=== PATIENT | male | born 1985 | race Caucasian/White ===

== ENCOUNTER 2019-05-09 15:35 | Emergency (ER) | payer OTHER, SELFPAY ==
[2019-05-09 16:06] VITALS: BP 135/79; PULSE 87; RESP 20; TEMP 36.8; O2SAT 97
--- NOTE | 2019-05-09 16:22 | ED.URI ---
HPI - URI/Sore Throat General Chief Complaint: Upper Respiratory Infection Stated Complaint: aches, coughs congest Time Seen by Provider: 05/09/19 16:22 Source: patient and RN notes reviewed History of Present Illness HPI Narrative: Patient is a 33-year-old male that presents the urgent care with complaints of chills, sweats, body aches, congestion, nonproductive cough. Patient states his symptoms have been ongoing for approximately 4 to 5 days. Has been using Mucinex, cough drops, Tylenol, ibuprofen. No other acute complaints. No acute distress noted. Patient had a plan of care. Related Data Allergies Allergy/AdvReac Type Severity Reaction Status Date / Time No Known Allergies Allergy Verified 05/09/19 16:58 Review of Systems Review of Systems: Narrative: CONSTITUTIONAL: Reports of chills and sweats EYES: Denies visual changes, redness, or discharge. ENT: Reports of sinus congestion CARDIOVASCULAR: Denies chest pain, palpitations, or edema. RESPIRATORY: Reports of nonproductive cough without dyspnea or wheezing GASTROINTESTINAL: Denies abdominal pain, nausea, vomiting, or diarrhea. GENITOURINARY: Denies dysuria or hematuria. SKIN: Denies rash or itching. MUSCULOSKELETAL: Denies back pain, joint pain; reports of body aches NEUROLOGIC: Denies headache, numbness, or weakness. All other systems reviewed are negative, except as documented in HPI. PMFSH Social History Social History Smoking status: Current every day smoker Alcohol intake: current Comments At the time of my signature, I reviewed and agree with the nursing past medical, surgical, social, and family history. There is no relevant family history pertinent to the patient complaint. Exam Narrative: Exam Narrative: GENERAL: This is a well-nourished, well-developed patient, in no apparent distress. HEAD: normocephalic, atraumatic. EYES: PERRL. Sclera clear/white. Vision is grossly intact. EARS: External ears normal, auditory canals clear and without drainage, TMs normal without perforation. Hearing grossly intact. NOSE: External nose normal with no obvious nasal discharge, nares without redness, clear rhinorrhea. THROAT: Mucous membranes moist, posterior pharynx clear. Moderate postnasal drainage NECK: Neck supple CARDIOVASCULAR: Regular rate and rhythm without murmurs, gallops, or rubs. RESPIRATORY: Slight crackles throughout without wheezing SKIN: warm, intact with no suspicious lesions or rash, good texture and turgor. NEURO: awake, alert, and oriented to person, place and time. There were no obvious focal neurologic abnormalities. EXTREMITIES: No clubbing, cyanosis, or edema. Course Vital Signs Vital signs: Vital Signs Temperature 98.3 F 05/09/19 16:06 Pulse Rate 87 05/09/19 16:06 Respiratory Rate 20 05/09/19 16:06 Blood Pressure 135/79 05/09/19 16:06 Pulse Oximetry 97 05/09/19 16:06 Temperature 98.3 F 05/09/19 16:06 Pulse Rate 87 05/09/19 16:06 Respiratory Rate 20 05/09/19 16:06 Blood Pressure 135/79 05/09/19 16:06 Pulse Oximetry 97 05/09/19 16:06 Reviewed MDM - URI/Sore Throat MDM Narrative Medical decision making narrative: Patient likely has influenza but we did not swab due to the length of symptoms. Advised the patient to treat symptoms with oril-mji-nhwwrxj medication such as Robitussin/Delsym for cough, Claritin for allergy-like symptoms, Flonase for nasal congestion, Tylenol/Motrin for fever/body aches. Increase fluids, especially water and rest. Use a humidifier. Be aware of symptoms of dehydration such as lethargy, confusion, increased weakness, dry lips, dry eyes. Follow-up with PCP within 2-5 days or for worsening symptoms or failure to improve. Differential Diagnosis Differential diagnosis: Likely upper respiratory infection, otitis media, sinusitis, viral infection, bronchitis, influenza and pharyngitis Critical Care Time Critical Care Time Cr
== END 2019-05-09 17:20 | disposition home or self-care (01) ==
PROVIDERS: Emergency Provider Nurse Practitioner Family
DX: B34.9 Viral infection, unspecified (principal); F17.200 Nicotine dependence, unspecified, uncomplicated
CPT/HCPCS: 99211; G0463

== ENCOUNTER 2019-05-17 21:15 | Emergency (ER) | payer OTHER, SELFPAY ==
--- NOTE | ~2019-05-17 | XR_ITS ---
EXAMINATION: XR chest 2V DATE: 05/17/2019 23:06 INDICATION: Wheezing, cough, intermittent fever. TECHNIQUE: PA and lateral views of the chest were obtained. COMPARISON: None FINDINGS: The lungs are clear with no focal airspace opacities, pulmonary edema, pleural effusion or pneumothor ax. The cardiomediastinal silhouette is normal. Mild upper thoracic levocurvature with minimal spondy losis. IMPRESSION: 1. No acute cardiopulmonary disease. Reviewed, dictated and finalized at location A. PREVENTION CHIEF
[2019-05-17 21:21] VITALS: BP 133/100; PULSE 116; RESP 20; TEMP 37.4; O2SAT 100
--- NOTE | 2019-05-17 21:36 | ED_ITS ---
I attest that this documentation has been prepared under the direction and in the presence of Sebastián Cline MD. Hallie Donis Scribe 05/17/19;21:36 HPI - Fever General Chief Complaint: Fever Stated Complaint: fever/cough Time Seen by Provider: 05/17/19 21:29 Related Data Home Medications Medication Instructions Recorded Confirmed No Home Medications 05/17/19 05/17/19 Allergies Allergy/AdvReac Type Severity Reaction Status Date / Time No Known Allergies Allergy Verified 05/17/19 21:23 [facility] Past Medical History Medical History (Updated 05/17/19 @ 21:44 by Hallie Donis) GERD (gastroesophageal reflux disease) Inguinal hernia right, x3 Pleurisy Pneumonia Surgical History Surgical History (Updated 05/17/19 @ 21:44 by Hallie Donis) H/O inguinal hernia repair right, x3 Social History Social History (Updated 05/17/19 @ 21:44 by Hallie Donis) Smoking packs per day: 1 Smoking cigarettes per day: 20.0 Years smoked: 24 Smoking pack-years: 24.00 Smoking status: Current every day smoker Tobacco type: cigarettes Alcohol intake: current Gender identity (if verbalized by the patient): Male Course Vital Signs Vital signs: Vital Signs Temperature 37.4 C 05/17/19 21:21 Pulse Rate 116 H 05/17/19 21:21 Respiratory Rate 20 05/17/19 21:21 Blood Pressure 133/100 H 05/17/19 21:21 Pulse Oximetry 100 05/17/19 21:21 Temperature 37.4 C 05/17/19 21:21 Pulse Rate 116 H 05/17/19 21:21 Respiratory Rate 05/17/19 21:21 Blood Pressure 133/100 H 05/17/19 21:21 Pulse Oximetry 100 05/17/19 21:21 MDM - Fever Lab Data Labs: Influenza A Screen Negative Reference Range: Negative Influenza B Screen Negative Reference Range: Negative Discharge Plan Discharge Prescriptions: No Action No Home Medications RF: 0
--- NOTE | 2019-05-17 21:46 | ED.FEVER ---
HPI - Fever General Chief Complaint: Fever Stated Complaint: fever/cough Time Seen by Provider: 05/17/19 21:29 Source: patient Mode of arrival: ambulatory Limitations: no limitations History of Present Illness HPI Narrative: The pt is a 33 y/o male who presents to the ED with cold sx that began 2 weeks ago. The pt reports dizziness, drowsiness, chest congestion, cough, lt arm tingling and SCHMITT, but denies nausea or vomiting. He has been taking Mucinex, Tylenol, and cough drops with no relief of sx. He was seen at an [facility] for the same sx, where his flu test came back negative. MD elicited complaint: other (cold sx) Onset (ago): week(s) (2) Associated symptoms: headache, cough and other (dizziness, drowsiness, chest congestion, lt arm tingling) Treatments prior to arrival fever: other (Mucinex, cough drops, Tylenol) Related Data Allergies Allergy/AdvReac Type Severity Reaction Status Date / Time No Known Allergies Allergy Verified 05/17/19 21:23 Review of Systems Review of Systems: All systems reviewed & are unremarkable except as noted in HPI and below Constitutional: Constitutional: Reports other (dizziness, drowsiness) ENT: Reports other (chest congestion) Respiratory: Respiratory: Reports cough Gastrointestinal: Gastrointestinal: Denies nausea and Denies vomiting Neurologic: Reports headache(s) and Reports tingling (lt) PMFSH Past Medical History Medical History GERD (gastroesophageal reflux disease) Inguinal hernia right, x3 Pleurisy Pneumonia Surgical History Surgical History H/O inguinal hernia repair right, x3 Family History Family History Father Family history of chronic obstructive pulmonary disease Social History Social History Smoking packs per day: 1 Smoking cigarettes per day: 20.0 Years smoked: 24 Smoking pack-years: 24.00 Smoking status: Current every day smoker Tobacco type: cigarettes Alcohol intake: current Gender identity (if verbalized by the patient): Male Exam Const: General: no acute distress and ill appearing Nutritional Appearance: well nourished HENMT: Mouth: Yes lip normal and Yes moist mucous membranes Eyes: Conjunctivae: conjunctivae normal Pupils: Equal, round and reactive pupils present Resp: Effort & Inspection: normal respiratory effort Auscultation: wheezes expiratory wheezes Cardio: Rate: regular rate Rhythm: regular rhythm GI: GI Palp: Yes Soft to palpation and No Tenderness to palpation present (GI) Auscultation: normal bowel sounds Back/Spine/Pelvis: Back: other (full ROM) Skin: General skin exam: normal color, dry skin and other (warm) Neuro: General: patient oriented x3 Speech: normal speech Extrem: General: full ROM Psych: Mental Status: mental status grossly normal Affect: normal affect Course Vital Signs Vital signs: Vital Signs Temperature 37.4 C 05/17/19 21:21 Pulse Rate 116 H 05/17/19 21:21 Respiratory Rate 20 05/17/19 21:21 Blood Pressure 133/100 H 05/17/19 21:21 Pulse Oximetry 100 05/17/19 21:21 Temperature 37.4 C 05/17/19 21:21 Pulse Rate 82 05/17/19 22:11 Respiratory Rate 23 H 05/17/19 22:11 Blood Pressure 133/100 H 05/17/19 21:21 Pulse Oximetry 100 05/17/19 21:21 MDM - Fever Differential Diagnosis Differential diagnosis: Likely community acquired pneumonia, influenza and other (bronchitis) Medical Records Attestation: I reviewed the patient's medical records. Lab Data Attestation: I reviewed the patient's lab results. Labs: Influenza A Screen Negative Reference Range: Negative Influenza B Screen Negative Reference Range: Negative Imaging Data Attestation: I personally reviewed and interpreted this
[2019-05-17 22:04] VITALS: PULSE 88; RESP 18
[2019-05-17] MEDS: ALBUTEROL SULFATE NEB 2.5 MG/0.5 ML INH 5 MG INHALATION (22:06)
[2019-05-17 22:11] VITALS: PULSE 82; RESP 23
[2019-05-17 23:35] VITALS: BP 122/85; PULSE 88; RESP 18; O2SAT 98
== END 2019-05-17 23:36 | disposition home or self-care (01) ==
PROVIDERS: Emergency Provider Emergency Medicine
DX: K21.9 Gastro-esophageal reflux disease without esophagitis (principal); J20.9 Acute bronchitis, unspecified
CPT/HCPCS: 71046; 87804; 94640; 96372; 99283; J1100

== ENCOUNTER 2019-08-25 09:43 | Emergency (ER) | payer OTHER, SELFPAY ==
--- NOTE | ~2019-08-25 | XR_ITS ---
EXAMINATION: XR shoulder RT min 2V DATE: 08/25/2019 10:12 INDICATION: Right shoulder pain. Fall. TECHNIQUE: 4 views of right shoulder were obtained. COMPARISON: None. FINDINGS: Bone alignment is normal. No acute fracture. There is an old healed fracture of the right s eventh rib. Joint spaces are normal. IMPRESSION: 1. No acute fracture. Reviewed, dictated and finalized at location A. IMPRESSION: 1. No acute fracture.
[2019-08-25 09:54] VITALS: BP 147/88; PULSE 94; RESP 20; TEMP 36.4; O2SAT 98
--- NOTE | 2019-08-25 10:04 | ED.UPPEXIN ---
HPI - Extremity Injury (Upper) General Chief Complaint: Extremity Injury, Upper Stated Complaint: SHOULDER PAIN Time Seen by Provider: 08/25/19 09:48 Source: RN notes reviewed History of Present Illness HPI narrative: Patient presents emergency department from home for right shoulder pain. Patient states symptoms began 4 days ago. Pain is located in the superior and posterior shoulder radiating to the right lower neck. Patient states symptoms began upon awakening 4 days ago. States pain is worse with movement of the shoulder. He denies any known trauma or injury denies any chest pain shortness of breath numbness or tingling in the extremities or any other symptoms of concern. States pain does radiate down his right arm. Patient has been using a TENS unit as well as ibuprofen at home with normal relief Related Data Allergies Allergy/AdvReac Type Severity Reaction Status Date / Time Bleach (Sodium Hypochlorite) Allergy Difficulty Verified 08/25/19 09:58 Breathing Review of Systems Review of Systems: Narrative: Gen.: Denies fevers or chills ENT: Denies congestion Respiratory: Denies shortness of breath or cough CV: Denies chest pain or palpitations GI: Denies abdominal pain nausea, emesis or diarrhea Musculoskeletal: See HPI Neuro: Denies numbness, tingling, weakness or focal weakness Skin: Denies rash Except as documented, all other systems reviewed and negative PMFSH Past Medical History Medical History GERD (gastroesophageal reflux disease) Inguinal hernia right, x3 Pleurisy Pneumonia Social History Social History Smoking packs per day: 1 Smoking cigarettes per day: 20.0 Years smoked: 24 Smoking pack-years: 24.00 Smoking status: Current every day smoker Tobacco type: cigarettes Alcohol intake: current Gender identity (if verbalized by the patient): Male Exam Narrative: Exam Narrative: APPEARANCE: No acute distress, nontoxic, resting in bed EYES: EOMI HEENT: Normocephalic, atraumatic, OMM Neck: Supple, no midline tenderness palpation tender palpation right paravertebral muscle C5-7 RESPIRATORY: No respiratory distress Clear to auscultation bilaterally with no rhonchi wheezing or rales. CARDIOVASCULAR: Regular rate and rhythm without murmurs rubs or gallops. ABDOMINAL: Soft, nontender, MUSCULOSKELETAl: Moves all extremities. No clubbing, cyanosis or edema. Tender palpation of the right superior posterior shoulder with tenderness throughout the region of the trapezius muscle pain with flexion abduction of the right shoulder greater than 45 degrees no tenderness of the right elbow or wrist radial pulse 2+, neurovascular intact NEURO: Awake and alert. Following commands, speech normal, no focal deficits SKIN:: Warm, dry. No rashes lesions or abrasions PSYCHIATRIC: Normal affect/mood, Course Course Emergency Course: Discussed with patient results of workup and diagnosis. Discussed need for follow-up with primary care, proper use of medication, and reasons to return to the emergency department. Patient understands and agrees to current treatment plan Vital Signs Vital signs: Vital Signs Temperature 97.5 F L 08/25/19 09:54 Pulse Rate 94 08/25/19 09:54 Respiratory Rate 08/25/19 09:54 Blood Pressure 147/88 H 08/25/19 09:54 Pulse Oximetry 98 08/25/19 09:54 Temperature 97.5 F L 08/25/19 09:54 Pulse Rate 94 08/25/19 09:54 Respiratory Rate 08/25/19 09:54 Blood Pressure 147/88 H 08/25/19 09:54 Pulse Oximetry 98 08/25/19 09:54 Discharge Plan Discharge Clinical Impression: Trapezius muscle spasm Patient Disposition: Home, Self-Care Condition: Stable Instructions: Antibiotic Form, Muscle Spasm (ED) Additional Instructions: Return for increasing pain numbness or tingling in extremities or any other symptoms of concern. Use a warm sonia
== END 2019-08-25 10:50 | disposition home or self-care (01) ==
PROVIDERS: Emergency Provider Emergency Medicine
DX: M62.830 Muscle spasm of back (principal); F17.210 Nicotine dependence, cigarettes, uncomplicated; K21.9 Gastro-esophageal reflux disease without esophagitis
CPT/HCPCS: 73030; 99283; A9270

== ENCOUNTER 2019-10-30 15:30 | Outpatient (RCR) | payer OTHER, SELFPAY ==
[2019-09-25 13:19] VITALS: BP_SYST 140
--- NOTE | 2019-09-25 14:56 | PTOPEVAL ---
Thank you for referring Albaro Adams to [facility]. Please review, sign, date and return this plan of care FABI. Pt referred to therapy due to right shoulder pain. He demonstrates shoulder weakness, restriction motion, radiating neural symptoms and poor scapular movement pattern. He requires additional skilled therapy 2x/wk x 5 wk to address UE symptoms and improve UE function. I agree with and certify that the following plan of care is medically necessary. Referring Physician Date Attending Provider: Sadia Ramos, MD *PT Outpatient Evaluation Start: 09/25/19 13:16 Freq: Status: Active Protocol: Document 09/25/19 13:19 CAP (Rec: 09/25/19 14:17 CAP [id number]) Therapy Assessment Status Assessment Status Assessment Status Evaluation Outpatient Past Medical History Past Medical History Source of Past Medical History Patient,Recalled from Previous Visit, Confirmed with Patient /Family Cardiovascular History Hx Hypertension Yes Gastrointestinal History Hx Hernia Yes: 3 repaired Musculoskeletal History Hx Fractures Yes: both legs 8 fx Psychosocial History Hx Anxiety Yes Hx Depression Yes Evaluation Information Problem Diagnosis right shoulder pain Onset 5-6 wks Cause unknown Subjective Information He woke up with neck and Query Text:As Reported By Patient/ shoulder pain. Reports Family radiating pain into right arm and chest region. Reports pin/ needles of right UE at all times. He is limited with use due to pain and symptoms. He has trouble sleeping due to pain. Prefers to sleep on right side. He using a pool to move the arm in circles, with improve motion, but cont pain when out of the pool. Using a TENS for pain with relief. He has some relief, but reports burning after a few hours. He using the unit constantly without off period during the day. Diagnostic Tests X-Rays For This Problem Yes: no fracture Prior Level of Function Activity Level (Last 3 Months) Occupation construction Hand Dominance Right Pain Assessment Timing of Pain Assessment Timing of Pain Assessment Assessment Pain Scale
--- NOTE | 2019-10-30 16:28 | PTOPEVAL ---
Thank you for referring Albaro Adams to [facility]. Please review, sign, date and return this plan of care FABI. Pt has received 10 therapy visits to address his right shoulder impairment. He demonstrates normal UE range and strength. He is able to perform normal daily activities without increased symptoms. DC skilled therapy at this time with goals achieved. I agree with and certify that the following plan of care is medically necessary. Referring Physician Date Attending Provider: Sadia Ramos, PT update/DC note *PT Outpatient Evaluation Start: 09/25/19 13:16 Freq: Status: Active Protocol: Document 10/30/19 15:32 ALISIA (Rec: 10/30/19 15:58 ALISIA [id number]) Therapy Assessment Status Assessment Status Assessment Status Re-evaluation Problem Diagnosis right shoulder pain Onset 5-6 wks Cause unknown Subjective Information He was performing he heavy Query Text:As Reported By Patient/ lifting today for 5-6 hours to Family help someone move an office. Denies any radiating UE symptoms with the lifting activities. Denies pin/needles sensation of right UE. He continues to have problems with sleeping due to UE discomfort, as well as the stess of life. He has not required use of the TENS unit this week for pain relief. Pain Assessment Timing of Pain Assessment Timing of Pain Assessment Re-assessment Pain Scale Pain Scale Used Numeric (1 - 10) Self Report Pain Assessment Right Arm(s) Reported Pain Level 0 Lowest Pain Intensity 0 Other Pain Aggravating Factors when trying to perform heavy lifting Pain Behaviors None Pain Score Pain Score 0: Self Report Upper Extremity Range of Motion Scapular/ Shoulder Range of Motion Right Scapular: Retraction Normal Scapular: Protraction Normal Scapular Downward Rotation Normal Scapular Upward Rotation Normal Shoulder Flexion - Active 175 Shoulder Extension - Active 65 Shoulder Abduction - Active 158 Shoulder Medial Rotation - Active 72 Shoulder Medial Rotation - Active T7 Query Text:Reach Behind the Back Shoulder Lateral Rotation - Active 90 Shoulder Lateral Rotation - Active C7 Query Text:Reach Behind the Head Scapular/Shoulder Range of Motion no radiating symptoms Comments Upper Extremity Muscle Strength Testing
== END 2019-11-02 10:33 | disposition home or self-care (01) ==
LOC: ANHPT 15:30
PROVIDERS: PCP Internal Medicine; Visit Provider Internal Medicine
DX: M25.511 Pain in right shoulder (principal)
CPT/HCPCS: 97014; 97110; 97140; 97162; G0283

== ENCOUNTER 2019-11-18 14:10 | Emergency (ER) | payer OTHER, SELFPAY ==
--- NOTE | ~2019-11-18 | XR_ITS ---
EXAMINATION: XR ankle LT min 3V DATE: 11/18/2019 14:47 INDICATION: Left ankle injury and pain. TECHNIQUE: 4 views of left ankle were obtained. COMPARISON: Left ankle radiographs 04/07/2008 FINDINGS: Bone alignment is normal. No acute fracture. There is a small fragment of well corticated h eterotopic ossification distal to medial malleolus, likely from old injury. There is a 2 mm fragment of ossification anterior to the ankle joint on the lateral view, likely a loose body. There is mild a nkle joint osteoarthritis. There is mild midfoot osteoarthritis. Ankle soft tissue swelling is noted. IMPRESSION: 1. 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 Reviewed, dictated and finalized at location A.
--- NOTE | ~2019-11-18 | XR_ITS ---
EXAMINATION: XR knee LT min 4V DATE: 11/18/2019 14:47 INDICATION: Left knee pain. Injury. TECHNIQUE: 4 views of left knee were obtained. COMPARISON: None. FINDINGS: Bone alignment is normal. No fracture. Joint spaces are well maintained. There is no knee j oint effusion. IMPRESSION: 1. Normal left knee. Reviewed, dictated and finalized at location A. IMPRESSION: 1. Normal left knee.
[2019-11-18 14:17] VITALS: BP 133/95; PULSE 90; RESP 28; TEMP 36.3; O2SAT 98
--- NOTE | 2019-11-18 14:30 | ED.LOWEXIN ---
HPI - Extremity Injury (Lower) General Chief Complaint: Extremity Injury, Lower <Ariela Lindsay PA-C - Last Filed: 11/18/19 15:13> Stated Complaint: Left Ankle pain <JANET Bonilla Last Filed: 11/18/19 15:13> Time Seen by Provider: 11/18/19 14:15 <Ariela Lindsay PA-C - Last Filed: 11/18/19 15:13> Source: patient <JANET Bonilla Last Filed: 11/18/19 15:13> Mode of arrival: ambulatory <JANET Bonilla Last Filed: 11/18/19 15:13> Limitations: no limitations <JANET Bonilla Last Filed: 11/18/19 15:13> History of Present Illness HPI Narrative: This is a 34 year old male that presents to the ER for left ankle and knee pain after an injury last night. Reports he was stepping off of his daughter's bed and twisted his ankle. Reports since he has had swelling and pain in the ankle. Also reports pain in his left knee. Reports he did hit his head on his daughter's stereo. Denies loss of consciousness. Denies vision changes, vomiting, or numbness. <JANET Bonilla Last Filed: 11/18/19 15:13> Related Data Home Medications: Home Medications Medication Instructions Recorded Confirmed No Home Medications 11/18/19 11/18/19 <Ariela Lindsay PA-C - Last Filed: 11/18/19 15:13> Allergies/Adverse Reactions: Allergies Allergy/AdvReac Type Severity Reaction Status Date / Time Bleach (Sodium Hypochlorite) Allergy Difficulty Verified 11/18/19 14:17 Breathing <JANET Bonilla Last Filed: 11/18/19 15:13> Review of Systems Review of Systems: Narrative: CONSTITUTIONAL: Denies fever EYES: Denies visual changes GASTROINTESTINAL: Denies vomiting MUSCULOSKELETAL: Reports joint pain, and myalgia. NEUROLOGIC: Denies numbness, or weakness. <JANET Bonilla Last Filed: 11/18/19 15:13> All systems reviewed & are unremarkable except as noted in HPI and below <Ariela Lindsay PA-C - Last Filed: 11/18/19 15:13> COUNTS INCLUDE 234 BEDS AT THE [facility] Social History Social History: Social History Smoking packs per day: 1 Smoking cigarettes per day: 20.0 Years smoked: 24 Smoking pack-years: 24.00 Smoking status: Current every day smoker Tobacco type: cigarettes Alcohol intake: current Gender identity (if verbalized by the patient): Male <Ariela Lindsay PA-C - Last Filed: 11/18/19 15:13> Exam Narrative: Exam Narrative: GENERAL: Well-appearing, well-nourished, and in no acute distress. HEAD: Normocephalic, atraumatic. EYES: PERRLA and EOMI. ENT: Nares clear, no rhinorrhea or epistaxis. Mucous membranes moist. Oropharynx without tonsillar hypertrophy exudate or other lesions. Bilateral TMs pearly kimble non-bulging NECK: Supple. No adenopathy or masses. CHEST: Clear to auscultation. No respiratory distress. No wheezes rales or rhonchi HEART: Regular rate and rhythm. No murmur heard. Normal peripheral pulses. EXTREMITIES: Normal range of motion. Mild edema to the left ankle. Normal DP pulses. Normal sensation. Strength equal in bilateral upper extremities (5/5) SKIN: Warm, dry, no rash. NEURO: No focal deficits. Alert and oriented x3. CN II-XII grossly intact PSYCH: Normal mood and affect <Ariela Lindsay PA-C - Last Filed: 11/18/19 15:13> Course Vital Signs Vital signs: Vital Signs Temperature 97.4 F L 11/18/19 14:17 Pulse Rate 90 11/18/19 14:17 Respiratory Rate 28 H 11/18/19 14:17 Blood Pressure 133/95 H 11/18/19 14:17 Pulse Oximetry 98 11/18/19 14:17 Temperature 97.4 F L 11/18/19 14:17 Pulse Rate 78 11/18/19 15:36 Respiratory Rate 16 11/18/19 15:36 Blood Pressure 133/75 11/18/19 15:36 Pulse Oximetry 100 11/18/19 15:36 <Ariela Lindsay PA-C - Last Filed: 11/18/19 15:13> Vital Signs Temperature 97.4 F L 11/18/19 14:17 Pulse Rate 90 11/18/19 14:17 Respiratory Rate 28 H 11/18/19 14:17 Blood Pressure 133/95 H
[2019-11-18] MEDS: KETOROLAC (*BKC) 60 MG/2 ML VIAL IM (15:35)
[2019-11-18 15:36] VITALS: BP 133/75; PULSE 78; RESP 16; O2SAT 100
--- NOTE | 2019-11-20 12:01 | PC.NURSE ---
LATE ENTRY This note is being entered to document information to the patient's record. The following information was omitted on [11/18/2019], by [MARK]. WOUND SHOULD BE PT LEFT KNEE AND ANKLE, NOT THE RIGHT. ALL INTERVENTIONS DONE TO THE L KNEE AND ANKLE, NOT THE RIGHT.
== END 2019-11-18 15:36 | disposition home or self-care (01) ==
PROVIDERS: Emergency Provider Emergency Medicine; PCP Internal Medicine
DX: S93.402A Sprain of unspecified ligament of left ankle, initial encounter (principal); S96.912A Strain of unspecified muscle and tendon at ankle and foot level, left foot, initial encounter; X50.9XXA Other and unspecified overexertion or strenuous movements or postures, initial encounter; F17.210 Nicotine dependence, cigarettes, uncomplicated
CPT/HCPCS: 73564; 73610; 96372; 99284; J1885

== ENCOUNTER 2020-12-28 23:00 | Emergency (ER) | payer OTHER, SELFPAY ==
[2020-12-28 23:26] VITALS: BP 129/86; PULSE 99; RESP 18; TEMP 36.2; O2SAT 95
--- NOTE | 2020-12-29 03:29 | ED.WOUNDLAC ---
HPI - Wound/Laceration General Chief Complaint: Wound/Laceration Stated Complaint: r arm lac Time Seen by Provider: 12/29/20 03:07 Source: patient Mode of arrival: ambulatory Limitations: no limitations History of Present Illness HPI narrative: This is a 35 year old male who presents for evaluation of right arm laceration. He states just prior to arrival to ER he states a knife accidentally fell cutting his right forearm. He was unable to ge bleeding controlled. He denies numbness or tingling. His last tetanus was 4 years ago. Related Data Home Medications Medication Instructions Recorded Confirmed No Home Medications 11/18/19 11/18/19 Allergies Allergy/AdvReac Type Severity Reaction Status Date / Time Bleach (Sodium Hypochlorite) Allergy Difficulty Verified 12/29/20 01:12 Breathing Review of Systems Review of Systems: All systems reviewed & are unremarkable except as noted in HPI and below PMFSH Past Medical History Medical History GERD (gastroesophageal reflux disease) Inguinal hernia right, x3 Pleurisy Pneumonia Surgical History Surgical History H/O inguinal hernia repair right, x3 Family History Family History Father Family history of chronic obstructive pulmonary disease Social History Social History Smoking packs per day: 1 Smoking cigarettes per day: 20.0 Years smoked: 24 Smoking pack-years: 24.00 Smoking status: Current every day smoker Tobacco type: cigarettes Alcohol intake: current Gender identity (if verbalized by the patient): Male Exam Const: General: no acute distress and alert Orientation/consciousness: patient oriented x3 HENMT: Head: normocephalic Face and sinus: face symmetric Eyes: EOM: EOMs intact bilaterally Resp: Effort & Inspection: normal respiratory effort Skin: General skin exam: normal color Neuro: General: patient oriented x3, moves all extremities and CN's II-XI intact bilaterally Extrem: Other: right forearm with 1.5 cm laceration, minimal bleeding, FROM pulse intact Course Reevaluation(s) Reevaluation #1: I Discussed with patient discharge plan and wound care. Date: 12/29/20 Time: 03:30 Vital Signs Vital signs: Vital Signs Temperature 97.1 F L 12/28/20 23:26 Pulse Rate 99 12/28/20 23:26 Respiratory Rate 18 12/28/20 23:26 Blood Pressure 129/86 12/28/20 23:26 Pulse Oximetry 95 12/28/20 23:26 Temperature 97.1 F L 12/28/20 23:26 Pulse Rate 76 12/29/20 03:49 Respiratory Rate 18 12/29/20 03:49 Blood Pressure 133/94 H 12/29/20 03:49 Pulse Oximetry 96 12/29/20 03:49 Procedures Laceration Laceration 1: Date: 12/29/20 Time: 03:29 Side (If applicable): right (arm) Size (cm): 1.5 Description: irregular Depth: simple, single layer Local Anesthetic: lidocaine 1% Amount of anesthesia used (mL): 1 Pre-repair: irrigated ====== Skin Level ====== Skin layer closed with: prolene Size (cm): 4-0 Number of sutures: 2 Technique: horizontal mattress ====== Subcutaneous Layer ====== ====== Muscle Layer ====== ====== Tendon Layer ====== Discharge Plan Discharge Clinical Impression: Laceration of arm Qualifiers: Encounter type: initial encounter Laterality: right Qualified Code(s): S41.111A - Laceration without foreign body of right upper arm, initial encounter Patient Disposition: Home, Self-Care Condition: Stable Instructions: Antibiotic Form, Care For Your Stitches (ED), Care For Your Absorbable Stitches (ED) Additional Instructions: Today you were treated for laceration. Sutures were placed and they will need to be removed in 10-14 days. Watch for sig
[2020-12-29 03:49] VITALS: BP 133/94; PULSE 76; RESP 18; O2SAT 96
== END 2020-12-29 03:51 | disposition home or self-care (01) ==
PROVIDERS: Emergency Provider General Practice; PCP Internal Medicine
DX: S51.811A Laceration without foreign body of right forearm, initial encounter (principal); K21.9 Gastro-esophageal reflux disease without esophagitis; Z87.01 Personal history of pneumonia (recurrent); F17.210 Nicotine dependence, cigarettes, uncomplicated; W26.0XXA Contact with knife, initial encounter
CPT/HCPCS: 12001; 99282

== ENCOUNTER 2022-01-29 12:57 | Emergency (ER) | payer OTHER, SELFPAY | END 2022-01-29 13:27 | disposition left against medical advice (07) | LOC: EXPBETH 13:00 | PROVIDERS: Emergency Provider Registered Nurse; PCP Internal Medicine | DX: Z53.21 Procedure and treatment not carried out due to patient leaving prior to being seen by health care provider (principal) | CPT/HCPCS: 99199 ==

== ENCOUNTER 2022-01-29 17:41 | Emergency (ER) | payer OTHER, SELFPAY ==
[2022-01-29 17:50] VITALS: BP 149/95; PULSE 94; RESP 18; TEMP 37.4; O2SAT 98
--- NOTE | 2022-01-29 18:59 | ED.EAR ---
HPI - Ear Problem General Chief complaint: Ear Stated complaint: left ear pain swelling Time Seen by Provider: 01/29/22 18:59 Source: patient, RN notes reviewed and old records reviewed Mode of arrival: ambulatory Limitations: no limitations History of Present Illness HPI Narrative: 36 year old male who presents to [facility] care with LEFT EAR PAIN FOR THE PAST 2 weeks. Patient reports that he has chronic ear problems in the past. Patient reports that he was cleaning his left ear out with a Q-tip and some of the cotton got stuck in there. Patient states that he got some of it ot and it had blue green yellow and orangy drainage on it. He states that he tried to pour peroxide in hsi ear this morning and his ear is augustine swollen it would not go in.Patient rates his pain a 25 with ear swollen and has decreased hearing to left ear. Patient also states that he is unable to close his mouth all the way, no facial swelling noted or any Dudley angina. MD Complaint: ear pain ( ), decreased hearing and other (SWELLING OF LEFT EAR CANAL) Location: left ear Duration: constant Severity: severe Discharge from ear: Reports yes - purulent Associated symptoms ear: fever (low grade), decreased hearing and external ear tenderness Related Data Allergies Allergy/AdvReac Type Severity Reaction Status Date / Time Bleach (Sodium Hypochlorite) Allergy Difficulty Verified 01/29/22 18:01 Breathing Review of Systems Review of Systems: CONSTITUTIONAL: Reports malaise, chills, sweats, or fever. EYES: Denies visual changes, redness, or discharge. ENT: Denies rhinorrhea, congestion, sinus pain, left otalgia denies sore throat. CARDIOVASCULAR: Denies chest pain, palpitations, or edema. RESPIRATORY: Reports some cough, is daily smoker? Denies dyspnea. GASTROINTESTINAL: Denies abdominal pain, nausea, vomiting, diarrhea SKIN: Denies rash or itching. MUSCULOSKELETAL: Denies myalgia. NEUROLOGIC: Denies headache. All systems reviewed & are unremarkable except as noted in HPI and below PMFSH Past Medical History Medical History Anxiety and depression GERD (gastroesophageal reflux disease) Hypertension Inguinal hernia right, x3 Leg fracture bilateral reported Pleurisy Pneumonia Surgical History Surgical History H/O inguinal hernia repair right, x3 Family History Family History Father Family history of chronic obstructive pulmonary disease Social History Social History Smoking packs per day: 1 Smoking cigarettes per day: 20.0 Years smoked: 24 Smoking pack-years: 24.00 Smoking status: Current every day smoker Tobacco type: cigarettes Alcohol intake: current Substance use: unknown Living arrangements: with family Gender identity (if verbalized by the patient): Male Comments At time of signature, agree with nursing past medical, surgical, social and family history. There is no relevant family history pertinent to the presenting complaint Exam Narrative: GENERAL: Well-appearing, well-nourished, and in no acute distress. HEAD: Normocephalic EYES: PERRLA, conjunctivae clear ENT: Nares clear, turbinates edematous and erythematous, clear discharge. Mucous membranes moist. Right TM pearly kimble with dull light reflex. Left TM unable to be viewed, left ear canal red swollen with some yellowish drainage noted,positive left tragal tenderness. Oropharynx erythematous without lesions. Tonsils not enlarged and without exudate, no drooling, no hoarseness, no trismus, uvula midline.no Dudley angina NECK: Supple. No lymphadenopathy CHEST: Clear to auscultation, breath sounds equal. No wheezing, rhonchi, rales, or stridor. No respiratory distress, speaks in full sentences.SAO2 98% on room air HEART: Regular
== END 2022-01-29 19:18 | disposition home or self-care (01) ==
PROVIDERS: Emergency Provider Registered Nurse; PCP Internal Medicine
DX: H66.92 Otitis media, unspecified, left ear (principal); H60.92 Unspecified otitis externa, left ear; F17.210 Nicotine dependence, cigarettes, uncomplicated
CPT/HCPCS: 99213; G0463